=== PATIENT | female | born 1970 | race African-American/Black ===

== ENCOUNTER 2018-04-23 11:45 | Emergency (ER) | payer SELFPAY ==
[2018-04-23] MEDS ORDERED: NORMAL SALINE 1000 ML 1,000 ML IV ONE (12:16)
--- NOTE | 2018-04-23 12:36 | RADIOLOGY REPORT (SQ) ---
EXAM DESCRIPTION: CT HEAD WITHOUT COMPLETED DATE/TIME: 04/23/2018 12:28 pm REASON FOR STUDY: ams COMPARISON: None. TECHNIQUE: Axial images acquired through the brain without intravenous contrast. Images reviewed wi th bone, brain and subdural windows. Additional sagittal and coronal reconstructions were generated. Images stored on PACS. All CT scanners at this facility use dose modulation, iterative reconstruction, and/or weight based d osing when appropriate to reduce radiation dose to as low as reasonably achievable (ALARA). [facility]: Dose Right [facility]: CareDose [facility]: Dose Right [facility]: Teradose 4D [facility]: App Partner RADIATION DOSE: mGy. LIMITATIONS: None. FINDINGS: VENTRICLES: Normal size and contour. CEREBRUM: No masses. No hemorrhage. No midline shift. No evidence for acute infarction. Normal gra y/white matter differentiation. No areas of low density in the white matter. CEREBELLUM: No masses. No hemorrhage. No alteration of density. No evidence for acute infarction. EXTRAAXIAL SPACES: No fluid collections. No masses. ORBITS AND GLOBE: No intra- or extraconal masses. Normal contour of globe without masses. CALVARIUM: No fracture. PARANASAL SINUSES: No fluid or mucosal thickening. SOFT TISSUES: No mass or hematoma. OTHER: No other significant finding. IMPRESSION: NORMAL BRAIN CT WITHOUT CONTRAST. EVIDENCE OF ACUTE STROKE: NO. COMMENT: Quality ID # [id number]: Final reports with documentation of one or more dose reduction techniques (e.g., Automated exposure control, adjustment of the mA and/or kV according to patient size, use of iterative reconstruction technique) TECHNICAL DOCUMENTATION: JOB ID: [id number] [employer]- All Rights Reserved Reading location - IP/workstation name: [facility]-[email or web address]
--- NOTE | 2018-04-23 12:38 | ER Document Report ---
ED Medical Screen (RME) - General Chief Complaint: Altered Mental Status Stated Complaint: ALTERED MENTAL STATUS Time Seen by Provider: 04/23/18 12:00 TRAVEL OUTSIDE OF THE [place] IN LAST 30 DAYS: No - HPI Notes: 04/23/18 12:37 Patient coming in for 1 week of altered mental status. 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 Denies any recent trauma denies any changes in her social environment the divorce is no deaths in the family. Patient otherwise is smiling upon my evaluation moving all 4 extremities ambulate without difficulty. 04/23/18 12:37 No previous psych history - Related Data Allergies/Adverse Reactions: strawberries Allergy (Uncoded 04/23/18 11:49) Past Medical History - Social History Chew tobacco use (# tins/day): No Frequency of alcohol use: None Drug Abuse: None Renal/ Medical History: Denies: Hx Peritoneal Dialysis Past Surgical History: Reports: Hx Tubal Ligation - Immunizations Immunizations up to date: Yes Hx Diphtheria, Pertussis, Tetanus Vaccination: Yes Review of Systems - Review of Systems Constitutional: Other - Altered mental status Physical Exam - Vital signs Vitals: Temp Pulse Resp BP Pulse Ox 98.2 F 79 20 181/90 H 100 04/23/18 11:50 04/23/18 11:50 04/23/18 11:50 04/23/18 11:50 04/23/18 11:50 - Respiratory Respiratory status: No respiratory distress Chest status: Nontender Breath sounds: Normal Chest palpation: Normal Course - Vital Signs Vital signs: Temp Pulse Resp BP Pulse Ox 98.2 F 79 20 181/90 H 100 04/23/18 11:50 04/23/18 11:50 04/23/18 11:50 04/23/18 11:50 04/23/18 11:50
--- NOTE | 2018-04-23 13:04 | ER Document Report ---
Addendum entered and electronically signed by WALKER BYRD LCSWA 04/23/18 16: 59: Discharge - Discharge Condition: Stable Disposition: HOME, SELF-CARE Additional Instructions: You have been evaluated by both mental health and medical teams and have been deemed appropriate for discharge. You are recommended to follow-up with neurology. AT ANY TIME, IF YOUR SYMPTOMS CHANGE SIGNIFICANTLY OR WORSEN OR YOU DEVELOP NEW SYMPTOMS, RETURN TO THE EMERGENCY DEPARTMENT IMMEDIATELY FOR RE-EVALUATION. Scribe Attestation: 04/23/18 14:06 I personally performed the services described in the documentation, reviewed and edited the documentation which was dictated to the scribe in my presence, and it accurately records my words and actions. Original Note: ED General - General Mode of Arrival: Ambulatory Information source: Patient TRAVEL OUTSIDE OF THE [place] IN LAST 30 DAYS: No <ALISON MANCINI - Last Filed: 04/23/18 14:03> <WALKER BYRD - Last Filed: 04/23/18 16:58> <GARRICK BUCK - Last Filed: 04/23/18 17:09> - General Chief Complaint: Altered Mental Status Stated Complaint: ALTERED MENTAL STATUS Time Seen by Provider: 04/23/18 12:00 Notes: Patient is a 48 year old female presenting to the emergency department accompanied by daughter complaining of confusion and episodic delusions. Daughter states for the last 8-9 months the patient has been intermittently behaving differently, further stating she has been telling people she is a police liaison and other lies. For example, daughter states while in the grocery store she told the cashier clerk that she was a police liaison, possibly hoping she may get free food. Patient states she is aware that she is not a police liaison and is aware she is telling others this but does not know why. Daughter states the patient may go a while without having any delusions and it would be onset randomly. Daughter further states the patient has not been to work within the last week and she stays in her bedroom looking at tv, sleeping and listening to music most of the day. She states she has been working at [employer] since 2001. Mother and daughter denies any social changes or recent traumas. Daughter denies any psychiatric history. Patient also complains of some abdominal pain. Daughter states the patient is taking Ibuprofen and Cetrizine. Patient's last menstrual period was approximately 1 week ago. (ALISON MANCINI) The daughter also reports that the patient has been losing weight over the past year, and even some of her newer clothing is fitting quite loosely. The patient does have a BMI of 19.8 at this time. 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 I discussed the patient's past history with her primary care provider to find out what her baseline blood pressures are, and have found over the last year her systolic tends to run in the 125-150 range, suspect she has been borderline hypertensive recently, and now is becoming hypertensive at a level that needs treatment. She does have a family history of high blood pressure. Patient's lab work was unremarkable including thyroid function studies and toxicology studies. Patient was evaluated by the mental health department here and they do not feel that this is a psychiatric problem. I do tend to agree and suspect that the patient has early age onset dementia. (GARRICK BUCK) - Related Data Allergies/Adverse Reactions: strawberries Allergy (Uncoded 04/23/18 11:49) Past Medical History - General Information source: Patient - Social History Smoking Status: Never Smoker Chew tobacco use (# tins/day): No Frequency of alcohol use: None Drug Abuse: None Family History: Hypertension Patient has suicidal ideation: No Patient has homicidal ideation: No Past Surgical History: Reports: Hx Tubal Ligation - Immunizations Immunizations up to date: Yes Hx Diphtheria, Pertussis, Tetanus Vaccination: Yes <ALISON MANCINI - Last Filed: 04/23/18 14:03> Review of Systems - Review of Systems Constitutional: No symptoms reported EENT: No symptoms reported Cardiovascular: No symptoms reported Respiratory: No symptoms reported Gastrointestinal: No symptoms reported Genitourinary: No symptoms reported Female Genitourinary: No symptoms reported Musculoskeletal: No symptoms reported Skin: No symptoms reported Hematologic/Lymphatic: No symptoms reported Neurological/Psychological: See HPI, Confusion -: Yes All other systems reviewed and negative <ALISON MANCINI - Last Filed: 04/23/18 14:03> Physical Exam - General General appearance: Appears well - Smiling throughout entire interview and exam , Alert In distress: None - HEENT Head: Normocephalic, Atraumatic - Respiratory Respiratory status: No respiratory distress Chest status: Nontender Breath sounds: Normal Chest palpation: Normal - Cardiovascular Rhythm: Regular Heart sounds: Normal auscultation Murmur: No Friction rub: No Gallop: None auscultated - Abdominal Inspection: Normal Distension: No distension Bowel sounds: Normal Tenderness: Nontender Organomegaly: No organomegaly - Back Back: Normal - Extremities General upper extremity: Normal ROM General lower extremity: Normal ROM - Neurological Neuro grossly intact: Yes Cognition: Normal Orientation: AAOx4 Ethan Coma Scale Eye Opening: Spontaneous [place] Coma Scale Verbal: Oriented Ethan Coma Scale Motor: Obeys Commands Ethan Coma Scale Total: 15 Speech: Normal - Psychological Associated symptoms: Other - Smiles. Inappropriately laughs when asking serious questions, suggestive of frontal lobe release. - Skin Skin Temperature: Warm Skin Moisture: Dry Skin Color: Normal <ALISON MANCINI - Last Filed: 04/23/18 14:03> - Vital signs Vitals: Temp Pulse Resp BP Pulse Ox 98.2 F 79 20 181/90 H 100 04/23/18 11:50 04/23/18 11:50 04/23/18 11:50 04/23/18 11:50 04/23/18 11:50 Course - Laboratory Result Diagrams: 04/23/18 12:48 04/23/18 12:48 <ALISON MANCINI - Last Filed: 04/23/18 14:03> - Laboratory Result Diagrams: 04/23/18 12:48 04/23/18 15:01 - EKG Interpretation by [place] EKG shows normal: Sinus rhythm, [place], Intervals, QRS Complexes, ST-T Waves Rate: Normal - 93 Voltage: Consistant with LVH Heart block present: 1st Degree When compared to previous EKG there are: Previous EKG unavailable <GARRICK BUCK - Last Filed: 04/23/18 17:09> - Vital Signs Vital signs: Temp Pulse Resp BP Pulse Ox 98.2 F 79 20 180/86 H 100 04/23/18 11:50 04/23/18 11:50 04/23/18 11:50 04/23/18 14:56 04/23/18 11:50 - Laboratory Laboratory results interpreted by ms: 04/23/18 04/23/18 04/23/18 12:48 12:48 14:43 RDW 16.2 H Sodium Chloride Calcium AST ALT Ammonia < 8.7 L Ur Leukocyte Esterase SMALL H Salicylates Acetaminophen 04/23/18 15:01 RDW Sodium 147.3 H Chloride 111 H Calcium 10.6 H AST 51 H ALT 80 H Ammonia Ur Leukocyte Esterase Salicylates < 1.0 L Acetaminophen < 10 L Discharge <ALISON MANCINI - Last Filed: 04/23/18 14:03> <WALKER BYRD - Last Filed: 04/23/18 16:58> <GARRICK BUCK - Last Filed: 04/23/18 17:09> - Discharge Clinical Impression: Change in mental status Qualifiers: Altered mental status type: unspecified Qualified Code(s): R41.82 - Altered mental status, unspecified Early onset Alzheimer's dementia Qualifiers: Dementia behavioral disturbance: without behavioral disturbance Qualified Code( s): G30.0 - Alzheimer's disease with early onset; F02.80 - Dementia in other diseases classified elsewhere without behavioral disturbance; F02.80 - Dementia in other diseases classified elsewhere without behavioral disturbance; F02.80 - Dementia in other diseases classified elsewhere without behavioral disturbance High blood pressure Qualifiers: Hypertension type: essential hypertension Qualified Code(s): I10 - Essential ( primary) hypertension Condition: Stable Disposition: HOME, SELF-CARE Additional Instructions: You have been evaluated by both mental health and medical teams and have been deemed appropriate for discharge. You are recommended to follow-up with neurology. AT ANY TIME, IF YOUR SYMPTOMS CHANGE SIGNIFICANTLY OR WORSEN OR YOU DEVELOP NEW SYMPTOMS, RETURN TO THE EMERGENCY DEPARTMENT IMMEDIATELY FOR RE-EVALUATION. Please follow-up with your primary care provider at [facility] tomorrow. Take copies of your lab work, EKG, and radiology studies. You will most likely need to start treatment for high blood pressure. You will need to be evaluated for early onset dementia, and possibly referred to a neurologist for further workup. RETURN TO THE EMERGENCY ROOM IF ANY NEW OR WORSENING SYMPTOMS. Forms: Return to Work, Treatment of Relative/Child Scribe Attestation: 04/23/18 14:06 I personally performed the services described in the documentation, reviewed and edited the documentation which was dictated to the scribe in my presence, and it accurately records my words and actions. (GARRICK BUCK) Scribe Documentation - Scribe Written by Rizwana:: Rizwana Pino, 04/23/2018 13:23 acting as scribe for :: Courtney <ALISON MANCINI - Last Filed: 04/23/18 14:03>
--- NOTE | 2018-04-23 13:09 | RADIOLOGY REPORT (SQ) ---
EXAM DESCRIPTION: CHEST 2 VIEWS COMPLETED DATE/TIME: 04/23/2018 12:48 pm REASON FOR STUDY: ams COMPARISON: None. EXAM PARAMETERS: NUMBER OF VIEWS: two views TECHNIQUE: Digital Frontal and Lateral radiographic views of the chest acquired. RADIATION DOSE: NA LIMITATIONS: none FINDINGS: LUNGS AND PLEURA: No opacities, masses or pneumothorax. No pleural effusion. MEDIASTINUM AND HILAR STRUCTURES: No masses or contour abnormalities. HEART AND VASCULAR STRUCTURES: Heart normal size. No evidence for failure. BONES: No acute findings. HARDWARE: None in the chest. OTHER: No other significant finding. IMPRESSION: NO ACUTE RADIOGRAPHIC FINDING IN THE CHEST. TECHNICAL DOCUMENTATION: JOB ID: [id number] [employer]- All Rights Reserved Reading location - IP/workstation name: [email or web address]
[2018-04-23 13:33] LABS: ABSOLUTE BASOPHILS # (AUTO) 0.1 10^3/uL (0.0-0.2); ABSOLUTE LYMPHOCYTES (AUTO) 2.1 10^3/uL (0.5-4.7); ABSOLUTE MONOCYTES (AUTO) 0.3 10^3/uL (0.1-1.4); ABSOLUTE NEUT (AUTO) 4.5 10^3/uL (1.7-8.2); BASOPHILS % (AUTO) 1.1 % (0-2); EOSINOPHILS % (AUTO) 0.2 % (0-6); HEMATOCRIT 39.3 % (36.0-47.0); HEMOGLOBIN 13.2 g/dL (12.0-15.5); LYMPHOCYTES % (AUTO) 29.7 % (13-45); MEAN CORPUSCULAR HEMOGLOBIN 28.4 pg (27.0-33.4); MEAN CORPUSCULAR HGB CONC 33.6 g/dL (32.0-36.0); MEAN CORPUSCULAR VOLUME 84 fl (80-97); MONOCYTES % (AUTO) 4.5 % (3-13); PLATELET COUNT 334 10^3/uL (150-450); RED BLOOD COUNT 4.66 10^6/uL (3.72-5.28); RED CELL DISTRIBUTION WIDTH 16.2 % (11.5-14.0); SEGMENTED NEUTROPHILS % (AUTO) 64.5 % (42-78); TOTAL CELLS COUNTED % (AUTO) 100 %
[2018-04-23] MEDS ORDERED: CLONIDINE HCL 0.2 MG TABLET PO ONE (15:03)
[2018-04-23] MEDS ORDERED: CLONIDINE HCL 0.1 MG TABLET PO ONE (15:05)
[2018-04-23 15:13] LABS: APPEARANCE,URINE CLEAR; BILIRUBIN,URINE NEGATIVE (NEGATIVE); COLOR,URINE STRAW; GLUCOSE, URINE NEGATIVE (NEGATIVE); KETONES,URINE NEGATIVE (NEGATIVE); LEUKOCYTE ESTERASE,URINE SMALL (NEGATIVE); NITRITE,URINE NEGATIVE (NEGATIVE); PROTEIN,URINE NEGATIVE (NEGATIVE); URINE SPECIFIC GRAVITY 1.008; UROBILINOGEN,URINE NEGATIVE mg/dL (<2.0)
[2018-04-23 15:29] LABS: URINE AMPHETAMINES SCREEN NEGATIVE; URINE BARBITURATES SCREEN NEGATIVE; URINE BENZODIAZEPINES SCREEN NEGATIVE; URINE COCAINE SCREEN NEGATIVE; URINE MARIJUANA (THC) SCREEN NEGATIVE; URINE METHADONE SCREEN NEGATIVE; URINE PHENCYCLIDINE SCREEN NEGATIVE
[2018-04-23 15:35] LABS: VENOUS BLOOD BASE EXCESS 1.1 mmol/L; VENOUS BLOOD HCO3 28.1 mmol/L (20-32); VENOUS BLOOD PCO2 55.5 mmHg (35-63); VENOUS BLOOD PH 7.32 (7.30-7.42)
[2018-04-23 15:55] LABS: ACETAMINOPHEN < 10 ug/mL (10-30); ALANINE AMINOTRANSFERASE 80 U/L (9-52); ALBUMIN 3.9 g/dL (3.5-5.0); ALCOHOL < 10 mg/dL (NONE DETECTED); ALKALINE PHOSPHATASE 70 U/L (38-126); ANION GAP 9 (5-19); ASPARTATE AMINO TRANSFERASE 51 U/L (14-36); BILIRUBIN,DIRECT 0.2 mg/dL (0.0-0.4); BILIRUBIN,TOTAL 0.4 mg/dL (0.2-1.3); BLOOD UREA NITROGEN 11 mg/dL (7-20); CALCIUM 10.6 mg/dL (8.4-10.2); CARBON DIOXIDE 27 mmol/L (22-30); CHLORIDE 111 mmol/L (98-107); GLUCOSE 88 mg/dL (75-110); POTASSIUM 3.8 mmol/L (3.6-5.0); SALICYLATE < 1.0 mg/dL (2.0-20.0); SODIUM 147.3 mmol/L (137-145); TOTAL PROTEIN 7.2 g/dL (6.3-8.2)
[2018-04-23 16:37] LABS: FREE T3 3.39 pg/mL (2.77-5.27); FREE T4 (FREE THYROXINE) 0.95 ng/dL (0.78-2.19)
--- NOTE | 2018-04-23 16:55 | PSYCHOLOGICAL NOTE ---
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 is not according to daughter.), not going to work for the past week. No past hx of mental health disorder. Pt doesn't take medications for mental health disorder. Patient discloses she came to [facility] ED because her daughter brought her because her stomach hurts. She continues state that she knows they are also concerned because her blood pressures high. She reports no concerns with her memory or stress and states she has been working at [employer] for 13 years. She denies any mental health history or taking any medications. Patient is able to correctly identify the current year president previous president. The patient was asked to similarity between an apple and a banana she stated "but it has potassium in apple is a FU" when asked the similarity between a bicycle and train she stated "bicycles for exercise a train is to ride." When clinician stated the similarity between a watch and a ruler and then again repeated the similarity she stated "watches to tell time and a ruler is for measurement." Patient was able to correctly identify calling 911 when seeing smoke from a neighbor's home however when asked if her bathroom was flooding the first thing she would do she stated "call emergency squad." When patient was asked to spell world backwards she stated [place] then stated that that was incorrect and then proceeded to correctly spell it backwards. Patient was asked if she remembers telling people that she is a police or patrol park officer. She confirms that she does however is unable to explain why she tells people this. Patient's daughter Brissa discloses the patient has been acting very strange so brought her to [facility] ED. She reports the patient does not been talking much but when she does she is making up stories. She states that lately she has been telling people she is a police or patrol park officer. 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 She reports noticing issues a year ago however the belief that she is a police or patrol park officer started just a couple months ago. She continued to disclose concern with the patient's memory. She reports that when her father asked the patient how their older daughter is doing (she has recently moved to [place]) the patient stated she does not know but thinks that the daughter is living with her brother in [place]. Patient discloses her brother is active duty and station in [place] and reports. Head CT conducted today: no finding Patient is alert and orientated to person, place, time and circumstance. Mood is euthymic with congruent affect. Clinician notes patient has an odd smile on her face throughout entire evaluation seems somewhat disconnected. Patient denies suicidal and homicidal ideations. Reports of delusions are noted i.e. patient believes she is on the police force however patient admits that she understands is not real but cannot explain why she has told people this information. Patient is not demonstrating behavior responding to internal stimuli i.e. organized linear conversations. Maintains good eye contact. Conversational speech is within normal rate, tone and prosody. Intellectual abilities appear to be within the average range. Attention and concentration were fair. Insight, judgment, impulse control are fair. No medication recommendations at this time Diagnosis deferred: Patient has no history of mental health; attending physician concerning early onset dementia and is referring patient to a neurologist. Impression\\plan: Patient is cleared from acute psychiatric services. Attending physician is concerned for early onset dementia and is recommending the patient follow up with neurology. Patient's reported delusions of thinking she is a police or patrol park officer does not put herself or others in danger (clinician notes patient is not attempting to act as law enforcement is only attempting to use law enforcement as a reason not to pay bills or get discounts on things). Dr. Rocha was consulted and the care management this patient; attending physician is agreement with recommendations and disposition.
[2018-04-23 17:25] VITALS: BP 152/69
== END 2018-04-23 17:25 | disposition home or self-care (01) ==
LOC: ER 11:45
DX: G30.0 Alzheimer's disease with early onset (principal); F02.80 Dementia in other diseases classified elsewhere, unspecified severity, without behavioral disturbance, psychotic disturbance, mood disturbance, and anxiety; R10.9 Unspecified abdominal pain; I10 Essential (primary) hypertension; I44.0 Atrioventricular block, first degree; R63.4 Abnormal weight loss; Z68.1 Body mass index [BMI] 19.9 or less, adult; Z79.1 Long term (current) use of non-steroidal anti-inflammatories (NSAID); Z79.899 Other long term (current) drug therapy; Z91.018 Allergy to other foods
CPT/HCPCS: 36415; 70450; 71046; 80053; 80307; 81001; 82140; 82803; 83605; 84439; 84443; 84481; 84703; 85025; 99285